=== PATIENT | female | born 1980 | race Caucasian/White ===

== ENCOUNTER 2017-02-11 00:55 | Emergency (ER) | payer SELFPAY ==
[2017-02-11 01:16] VITALS: BP 112/76; TEMP 96.2; O2SAT 99
--- NOTE | 2017-02-11 01:28 | ED.PDOC ---
History of Present Illness - General Chief Complaint: Skin/Abrasion/Tear Stated Complaint: itching to left hand Time Seen by Provider: 02/11/17 01:26 Source: patient Exam Limitations: no limitations - History of Present Illness Initial Comments: Patient presents with a second degree burn from a curling iron on the back of her left hand. She says that she thinks she saw something crawl out of the wound today. She is worried about bugs or scabies there. The burn was made 4-5 weeks ago but she has repeatedly burned it. No other complaints. Timing/Duration: changing over time Severity: mild Improving Factors: nothing Worsening Factors: nothing Associated Symptoms: denies symptoms Allergies/Adverse Reactions: Allergies Penicillins Allergy (Verified 02/11/17 01:16) Home Medications: Ambulatory Orders NK [NK] 02/11/17 Review of Systems - Review of Systems Constitutional: States: no symptoms reported EENTM: States: no symptoms reported Respiratory: States: no symptoms reported Cardiology: States: no symptoms reported Gastrointestinal/Abdominal: States: no symptoms reported Genitourinary: States: no symptoms reported Musculoskeletal: States: no symptoms reported Skin: States: see HPI Neurological: States: no symptoms reported Endocrine: States: no symptoms reported Past Medical History (General) - Patient Medical History Hx Seizures: Yes Surgical History: Hysterectomy - Vaccination History Hx Tetanus, Diphtheria Vaccination: No - Social History Hx Alcohol Use: Yes Hx Substance Use: Yes - marijuana - Female History Patient : No - hysterectomy Family Medical History - Family History Mother Family History: Unknown Physical Exam - Physical Exam General Appearance: Alert Respiratory: lungs clear Cardiovascular/Chest: regular rate, rhythm Gastrointestinal/Abdominal: normal bowel sounds, non tender, soft Skin Exam: other - 2nd degree burn on posterior left hand. 2 cm in length, 1 cm in width, well healing. No exocoriations. Departure - Departure Clinical Impression: Second degree burn injury Disposition: Discharge to Home or Self Care Condition: Good Departure Forms: ED Discharge - Pt. Copy, Patient Portal Self Enrollment Diet: resume usual diet Activity: increase activity as tolerated Home Medications: Ambulatory Orders NK [NK] 02/11/17 Additional Instructions: Use Neosporin with lidocaine to the area twice per day. Take a picture of it every week to track healing.
== END 2017-02-11 01:38 | disposition home or self-care (01) ==
LOC: ER 00:55
DX: T23.262A Burn of second degree of back of left hand, initial encounter (principal); Z88.0 Allergy status to penicillin; X19.XXXA Contact with other heat and hot substances, initial encounter; Y92.9 Unspecified place or not applicable